=== PATIENT | male | born 1950 | race Hispanic/Latino ===

== ENCOUNTER 2017-01-27 15:50 | Outpatient (CLI) | payer MEDICARE | END 2017-01-27 15:51 | disposition home or self-care (01) | LOC: HPCALD 15:50 | PROVIDERS: ATTEND Physician Assistant | DX: N39.0 Urinary tract infection, site not specified (principal) | CPT/HCPCS: 87077; 87086 ==

== ENCOUNTER 2018-04-07 10:30 | Outpatient (CLI) | payer MEDICARE ==
--- NOTE | 2018-04-07 22:43 | ULT ---
BILATERAL RENAL ULTRASOUND: 04/07/18 Ultrasonography of the urinary tract was performed in this patient with chronic kidney disease. The right kidney measures 9.6 x 5.6 x 4.2 cm. No mass or hydronephrosis was seen. The cortex was norm al in thickness. The left kidney measures 9.6 x 4.9 x 4.5 cm. No mass or hydronephrosis was seen here either. Cortex a lso was normal in thickness. The urinary bladder contain no internal defects or particular wall thickening. The prostate is enlarg ed measuring 5.4 x 4.2 x 4.7 cm. The shape was mildly irregular. A digital exam should be performed i f it has not been recently. IMPRESSION: 1. No significant findings in the urinary tract. 2. Prostatic enlargement. POS: HOME
== END 2018-04-07 10:31 | disposition home or self-care (01) ==
LOC: BURULT 10:30
PROVIDERS: ATTEND Internal Medicine Nephrology
DX: I12.9 Hypertensive chronic kidney disease with stage 1 through stage 4 chronic kidney disease, or unspecified chronic kidney disease (principal); N18.3 Chronic kidney disease, stage 3 (moderate); N40.0 Benign prostatic hyperplasia without lower urinary tract symptoms
CPT/HCPCS: 76770

== ENCOUNTER 2020-12-15 07:13 | Emergency (ER) | payer MEDICARE, OTHER ==
[2020-12-15 07:31] LABS: Clarity Turbid (Clear)
[2020-12-15 07:33] LABS: Leukocyte Unable to Interpret (Negative); Nitrite Unable to Interpret (Negative); Specific Gravity, Urine 1.021 (1.002-1.036)
[2020-12-15 07:34] LABS: Bilirubin Unable to Interpret (Negative); Blood, Urine Unable to Interpret (Negative); Glucose, Urine (Dipstick) Unable to Interpret mg/dL (Negative); Ketone, Urine Unable to Interpret mg/dL (Negative); Protein, Urine (Dipstick) Unable to Interpret mg/dL (Neg-Trace); Urobilinogen UNABLE TO INTERPRET mg/dL (Less than 2)
[2020-12-15 07:37] LABS: Bacteria/HPF 1+ HPF (None Seen); RBC/HPF Greater than 50 HPF (0-3); Squamous Epithelial 0-3 HPF (0-3)
[2020-12-15] MEDS ORDERED: Phenazopyridine HCl 97.5 MG TABLET ONE (07:49)
[2020-12-15] MEDS ORDERED: Sulfameth/Trimethoprim DS 800-160mg TAB ONE (07:49)
== END 2020-12-15 07:55 | disposition home or self-care (01) ==
LOC: BURERS 07:13
DX: N39.0 Urinary tract infection, site not specified (principal); I10 Essential (primary) hypertension; Z79.899 Other long term (current) drug therapy
CPT/HCPCS: 81003; 81015; 99283